=== PATIENT | female | born 1980 | race Two or more races ===

== ENCOUNTER 2022-12-18 22:35 | Emergency (ER) | payer OTHER ==
[~2022-12-18] VITALS: Ht 157.5 cm; Wt 104.3 kg
[2022-12-19] MEDS ORDERED: DUI500 PO (01:29)
[2022-12-19] MEDS ORDERED: KETO10TA2 PO (01:29)
== END 2022-12-19 01:41 ==
LOC: ER 22:35
DX: S00.83XA Contusion of other part of head, initial encounter (principal); W18.30XA Fall on same level, unspecified, initial encounter; Y93.9 Activity, unspecified; Y92.9 Unspecified place or not applicable; Y99.9 Unspecified external cause status; R60.0 Localized edema